=== PATIENT | male | born 1965 | race Caucasian/White ===

== ENCOUNTER → 2020-12-10 | Outpatient (CLI) | payer OTHER | END | disposition home or self-care (01) | LOC: US 11:08 | PROVIDERS: ATTEND Podiatrist | DX: R60.0 Localized edema (principal); M79.605 Pain in left leg; M79.662 Pain in left lower leg; M79.661 Pain in right lower leg ==

== ENCOUNTER → 2021-02-25 | Outpatient (CLI) | payer OTHER | END | disposition home or self-care (01) | LOC: COVID19 15:43 | PROVIDERS: ATTEND Internal Medicine | DX: Z11.52 Encounter for screening for COVID-19 (principal) ==